=== PATIENT | female | born 1980 | race Caucasian/White ===

== ENCOUNTER 2016-11-18 09:33 | Emergency (ER) | payer OTHER | END 2016-11-18 10:49 | disposition home or self-care (01) | LOC: ED 09:33 | DX: L02.31 Cutaneous abscess of buttock (principal); L73.2 Hidradenitis suppurativa; I47.1 Supraventricular tachycardia; E03.9 Hypothyroidism, unspecified; Z87.891 Personal history of nicotine dependence; Z86.14 Personal history of Methicillin resistant Staphylococcus aureus infection ==

== ENCOUNTER 2016-12-11 05:40 | Day surgery (SDC) | payer OTHER ==
[~2016-12-11 05:40] MED LIST: IV START KIT ONE; LACTATED RINGERS 1,000 ML ONE
[2016-12-11] MEDS ORDERED: LIDOCAINE 1% 2 ML VIAL ID PRN (06:03)
[2016-12-11] MEDS ORDERED: CLINDAMYCIN 600 MG PREMIX 600 MG in Premix (D5W) 50 ml 1 EACH IV PRN (06:03)
[2016-12-11] MEDS ORDERED: CLINDAMYCIN 600 MG PREMIX 50 ML IV ONE (06:12)
[2016-12-11] MEDS ORDERED: BUPIVACAINE 0.5% W/EPI SDV 30 ML VIAL ONE (06:41)
[2016-12-11] MEDS ORDERED: LIDOCAINE 1% (PRES FREE) 30 ML VIAL ONE (06:41)
[2016-12-11] MEDS ORDERED: PROPOFOL 20 ML IV ONE ×2 (06:46→07:22)
[2016-12-11] MEDS ORDERED: MIDAZOLAM HCL 5 MG/5 ML VIAL ONE (06:46)
[2016-12-11] MEDS ORDERED: LIDOCAINE 2% (PRES FREE) 5 ML VIAL ONE (06:46)
[2016-12-11] MEDS ORDERED: FENTANYL 250 MCG/5 ML AMP ONE (06:46)
[2016-12-11] MEDS ORDERED: DEXAMETHASONE SOD PHOS 4 MG/1 ML VIAL ONE (07:24)
[2016-12-11] MEDS ORDERED: ONDANSETRON 4 MG/2ML 2 ML VIAL ONE (07:24)
[2016-12-11] MEDS ORDERED: FENTANYL 100 MCG/2 ML VIAL IV PRN (07:50)
[2016-12-11] MEDS ORDERED: ONDANSETRON 4 MG/2ML 2 ML VIAL IV PRN ×2 (07:50→09:22)
[2016-12-11] MEDS ORDERED: MEPERIDINE 25 MG/ML SYRINGE IV PRN (07:50)
[2016-12-11] MEDS ORDERED: ATROPINE SULFATE 0.4 MG/1 ML VIAL IV PRN (07:50)
[2016-12-11] MEDS ORDERED: NALOXONE HCL 0.4 MG/ML VIAL IV PRN (07:50)
[2016-12-11] MEDS ORDERED: LACTATED RINGERS 1,000 ML IV SCH ×2 (08:00→09:22)
[2016-12-11] MEDS ORDERED: PROMETHAZINE HCL 25 MG/ML VIAL ONE (08:31)
[2016-12-11] MEDS: PROMETHAZINE HCL 25 MG/ML VIAL IM PRN ×2 (08:33→09:05)
[2016-12-11] MEDS ORDERED: LACTATED RINGERS 1,000 ML ONE (08:38)
[2016-12-11] MEDS: HYDROMORPHONE HCL 1 MG/ML SYRINGE IV PRN ×3 (08:42→09:04)
[2016-12-11] MEDS ORDERED: KETOROLAC TROMETHAMINE 30 MG/ML 1 ML VIAL ONE (08:45)
--- NOTE | 2016-12-11 08:45 | PCMBPN ---
Brief Post Op Note: Date of Procedure: 12/11/16 Preoperative Diagnosis: 1. Right axillary and left perineal/proximal thigh hidradenitis suppuritiva Postoperative Diagnosis: 1. Same Procedure: Excision and closure right axillary hidradenitis, excision and packing left proximal thigh hidradenitis Surgeon: Lisbet Norris MD Assist:Lizzy Flowers Anesthesia: GETA Findings: See dictation Condition: stable Complications: none IV Fluids: see anesthesia report Urine Output: not recorded Estimated Blood Loss: 5 mLs Tourniquet Time: N/A Specimens: Right axilla hidradenitis, Left thigh hidradenitis Implants: n/a Drains: [N/A]
[2016-12-11] MEDS ORDERED: KETOROLAC TROMETHAMINE 30 MG/ML 1 ML VIAL IM ONE (08:49)
[2016-12-11] MEDS ORDERED: KETOROLAC TROMETHAMINE 30 MG/ML 1 ML VIAL IV ONE (08:54)
[2016-12-11] MEDS ORDERED: HYDROMORPHONE HCL 1 MG/ML SYRINGE ONE (09:02)
[2016-12-11] MEDS ORDERED: OXYCODONE/ACETAMINOPHEN 5/325 MG TABLET PO PRN (09:22)
[2016-12-11] MEDS ORDERED: HYDROMORPHONE HCL 1 MG/ML SYRINGE IV PRN (09:22)
[2016-12-11] MEDS ORDERED: HYDROMORPHONE HCL 0.5 MG/0.5 ML SYRINGE IV PRN (09:26)
[2016-12-11] MEDS ORDERED: OXYCODONE/ACETAMINOPHEN 5/325 MG TABLET ONE (09:47)
--- NOTE | 2016-12-11 10:49 | OP ---
Kiersten Bee [id number] : 1980 DATE OF SERVICE: 12/11/2016 PREPROCEDURE DIAGNOSIS: Right axillary hidradenitis and left perineal hidradenitis with current infection. POSTOPERATIVE DIAGNOSIS: Right axillary hidradenitis and left perineal hidradenitis with current infection. PROCEDURE PERFORMED: Excision and closure of a right axillary hidradenitis, excision and drainage of left upper thigh/peroneal hidradenitis. SURGEON: Dr. Lisbet Norris. POUNCING MACHINE OPERATOR: Lizzy Flowers. ANESTHESIA: General. FINDINGS: Small pit inflamed in the right axilla medially excised without issue, good clean fat underneath, was able to be closed primarily. A left peroneal region currently inflamed. Area of hidradenitis that was excised and left open with packing. TECHNIQUE: The patient was brought back to the operating room, placed under general anesthesia. The axilla and perineum was prepped and draped in sterile surgical fashion. The patient was placed in low stirrups. After the patient was placed in stirrups local anesthetic was placed in the right axilla around the lesion and a 15 blade scalpel was used to make an ellipse around the lesion to remove the skin that was involved with the hidradenitis. This was about 0.5 cm wide and about 1.5 cm in length. A 15 blade scalpel was used to do this and cut down to the dermis and once through the dermis electrocautery was used to cut through some of the fatty tissue just to make sure he had a good margin and everything was nice and clean and no infection left behind. Once I had a good adequate sampling I sent that for permanent specimen and then irrigated the cavity and closed the skin incision with interrupted vertical mattress sutures with 3-0 Nylon. After that, I took my attention down to the perineum on the left upper posterior thigh. There was an inflamed area and I placed local anesthetic around the lesion and excised it with a 15 blade scalpel in an ellipse about the same dimensions as the axillary dimensions. Once through the dermis I used electrocautery to cut in and actually went very deep into the fat with this because the fat looked very dirty fat because this was actually acutely infected. There was some almost purulent discharge, but there was no abscessed cavity to it. It was just kind of coming from the fatty tissue. I irrigated that out and made sure I had hemostasis and then used plain packing to pack into the tissue. I went about 3 cm deep. Once that was packed dressings were applied and the patient was awakened, extubated and returned to recovery in stable condition. All needle, instrument, and sponge counts were correct at the end of the case. JOB: [id number]
--- NOTE | 2016-12-13 12:10 | SURGPATH ---
[facility] [address] [place] [id number] Patient Name: ROLAND LOYA MR#: [id number] : 1980 Gender: F Specimen #: [id number] Collected: 12/11/2016 Received: 12/12/2016 Reported: 12/13/2016 Submitting Phys: DONELL ECHEVERRIA Copy To Phys: NATHALY MIRELES [facility] Clinical History / Pre-Operative Diagnosis: HIDRADENITIS Specimen Source / Surgical Procedure Performed: #1-RIGHT AXILLARY; #2-LEFT THIGH Interpretation: 1. RIGHT AXILLARY HIDRADENITIS, EXCISION: - HIDRADENITIS SUPPURATIVA 2. LEFT THIGH HIDRADENITIS, EXCISION: - HIDRADENITIS SUPPURATIVA Electronically Signed Out Vince Elmore M.D. Gross Description: #1 The specimen is received in a formalin filled container labeled with the patient's name and "right axillary hidradenitis". A holly skin ellipse with subcutaneous tissue is 1.7 x 0.5 x 0.5 cm. The specimen is multiply cross sectioned and entirely submitted in cassette #1. #2 The specimen is received in a formalin filled container labeled with the patient's name and "left thigh hidradenitis". A lobular excision of yellow-holly, fibrofatty tissue is 2.5 x 1.7 x 1 cm and is partially covered by 1.3 x 0.7 cm ellipse of warren-holly skin. On the skin surface is a central 0.5 cm raised pink-warren lesion. The specimen is multiply cross sectioned. There is no nodule or induration. Totally embedded as three sections in cassette #2. Giovanni Chowdary Microscopic Description: 1. The sections show skin and subcutaneous tissue with acute inflammation with abscess formation. 2. The sections show skin and subcutaneous tissue with acute inflammation and abscess formation. 1: 21931 2: 05016 L73.2
== END 2016-12-11 10:40 | disposition home or self-care (01) ==
LOC: SDC 05:40
PROVIDERS: ATTEND Surgery
PROC: 0JBD0ZZ Excision of Right Upper Arm Subcutaneous Tissue and Fascia, Open Approach (ICD-10-PCS; principal; 2016-12-11)
PROC: 0JBC0ZZ Excision of Pelvic Region Subcutaneous Tissue and Fascia, Open Approach (ICD-10-PCS; 2016-12-11)
DX: L73.2 Hidradenitis suppurativa (principal); E03.9 Hypothyroidism, unspecified; F17.210 Nicotine dependence, cigarettes, uncomplicated; Z79.899 Other long term (current) drug therapy; Z88.0 Allergy status to penicillin; Z88.8 Allergy status to other drugs, medicaments and biological substances; Z88.1 Allergy status to other antibiotic agents; Z88.5 Allergy status to narcotic agent
CPT/HCPCS: 11450; 11470; J1170; J3010; J1100; A9270; J2550; J1885; J2250; J2001; J2405; J7120 ×2